=== PATIENT | female | born 1985 | race Two or more races ===

== ENCOUNTER 2022-04-15 10:07 | Observation (INO) | payer MEDICAID ==
[~2022-04-15 10:07] MED LIST: PREN-96 PO
== END 2022-04-15 12:45 | disposition home or self-care (01) ==
LOC: LDRP 10:07
PROVIDERS: ADMIT Obstetrics & Gynecology; ATTEND Obstetrics & Gynecology
DX: O62.9 Abnormality of forces of labor, unspecified (principal); O60.03 Preterm labor without delivery, third trimester; O26.893 Other specified pregnancy related conditions, third trimester; H53.8 Other visual disturbances; Z3A.36 36 weeks gestation of pregnancy; Z98.891 History of uterine scar from previous surgery
CPT/HCPCS: 59025; 81002; 94760; G0378

== ENCOUNTER 2022-04-17 07:47 | Inpatient (IN) | payer MEDICAID ==
[~2022-04-17] VITALS: Ht 152.4 cm; Wt 66.2 kg
[2022-04-27] MEDS ORDERED: TERBUTALINE SULFATE 1 MG/ML 1ML VIAL SC ONE ×3 (11:28→13:45)
[2022-04-27] MEDS ORDERED: LACTATED RINGER'S 1,000 ML IV ONE (11:30)
[2022-04-27] MEDS ORDERED: LACTATED RINGER'S 1,000 ML IV SCH (11:30)
[2022-04-27 12:18] LABS: Basophils # (auto) 0 10 ^3/uL (0-0.2); Basophils % (auto) 0.2 % (0.0-2.0); Eosinophils # (auto) 0 10 ^3/uL (0-0.8); Eosinophils % (auto) 0.3 % (0.0-7.0); Hematocrit 37.4 % (36.0-46.0); Hemoglobin 12.3 g/dL (12.2-16.2); Lymphocytes # (auto) 2.5 10 ^3/uL (0.4-5.4); Lymphocytes % (auto) 27.2 % (10.0-50.0); Mean Corpuscular Hemoglobin 30.6 pg (28.0-32.0); Mean Corpuscular Hgb Conc. 32.9 g/dL (32.0-36.0); Mean Corpuscular Volume 93.1 fL (80.0-100.0); Monocytes # (auto) 0.5 10 ^3/uL (0-1.3); Monocytes % (auto) 5.4 % (0.0-12.0); Neutrophils # (auto) 6.2 10 ^3/uL (1.6-8.6); Neutrophils % (auto) 66.9 % (37.0-80.0); Nucleated Red Blood Cells % 0.1 %; Red Blood Cells 4.02 10^6/uL (4.0-5.20); Red Cell Distribution Width 13.3 % (11.8-14.3); White Blood Cell 9.3 10^3/uL (4.4-10.8)
[2022-04-27 12:35] LABS: Albumin 2.9 g/dL (3.4-5.0); Calcium 8.7 mg/dL (8.5-10.1); Potassium 3.8 mmol/L (3.5-5.1)
[2022-04-27 12:37] LABS: Bilirubin, Total 0.3 mg/dL (0.2-1.0); Total Protein 6.6 g/dL (6.4-8.2)
[2022-04-28 06:06] LABS: RPR Non Reactive (Non Reactive)
[2022-04-28] MEDS ORDERED: NIF10C PO (07:31)
== END 2022-04-27 15:09 | disposition home or self-care (01) | DRG 566 ==
LOC: LDRP 04-27 10:34 → OBSVTOIN 04-27 11:26
PROVIDERS: ADMIT Obstetrics & Gynecology; ATTEND Obstetrics & Gynecology
DX: O34.211 Maternal care for low transverse scar from previous cesarean delivery (principal); Z20.822 Contact with and (suspected) exposure to COVID-19; Z3A.38 38 weeks gestation of pregnancy
CPT/HCPCS: 36415; 59025; 80053; 81002; 85025; 86592; 86850; 86900; 86901; 94760; 96365; 96372; G0378

== ENCOUNTER 2022-04-28 06:06 | Observation (INO) | payer MEDICAID ==
[2022-04-28] MEDS ORDERED: NIF10C PO (07:31)
== END 2022-04-28 07:45 | disposition home or self-care (01) ==
LOC: LDRP 06:06
PROVIDERS: ADMIT Obstetrics & Gynecology; ATTEND Obstetrics & Gynecology
DX: O26.893 Other specified pregnancy related conditions, third trimester (principal); R10.9 Unspecified abdominal pain; R19.7 Diarrhea, unspecified; Z3A.37 37 weeks gestation of pregnancy
CPT/HCPCS: 59025; 81002; 94760; G0378

== ENCOUNTER 2022-05-01 06:54 | Observation (INO) | payer MEDICAID ==
[~2022-05-01] VITALS: Ht 152.4 cm; Wt 63.5 kg
[~2022-05-01 06:54] MED LIST changes: +NIF10C PO
[2022-05-01] MEDS ORDERED: TERBUTALINE SULFATE 1 MG/ML 1ML VIAL SC SCH (07:45)
== END 2022-05-01 09:22 | disposition still patient (30) ==
LOC: LDRP 06:54 → UNDOADMOB 06:54 → LDRP 07:12 → UNDODISOB 09:22
PROVIDERS: ADMIT Obstetrics & Gynecology; ATTEND Obstetrics & Gynecology
DX: O47.1 False labor at or after 37 completed weeks of gestation (principal); O62.9 Abnormality of forces of labor, unspecified; O21.2 Late vomiting of pregnancy; Z3A.38 38 weeks gestation of pregnancy
CPT/HCPCS: 59025; 81002; 96372; G0378; J3105; 96375

== ENCOUNTER 2022-05-03 05:00 | Inpatient (IN) | payer MEDICAID ==
[~2022-05-03] VITALS: Ht 152.4 cm; Wt 67.1 kg
[2022-05-03] VITALS (15 sets, daily range): BP systolic 99–115; BP diastolic 55–82
[2022-05-03] MEDS ORDERED: ceFAZolin 1GM/50ML 50 ML IV ONE (05:45)
[2022-05-03] MEDS ORDERED: LACTATED RINGER'S 1,000 ML IV ONE (05:45)
[2022-05-03] MEDS ORDERED: SODIUM CHLORIDE LOCK 20 ML ONE (06:11)
[2022-05-03] MEDS ORDERED: MIDAZOLAM HCL 2MG/2ML 2ml VIAL (1mg/ml) ONE (06:11)
[2022-05-03] MEDS ORDERED: ePHEDrine SULFATE 50 MG/ML AMP ONE (06:11)
[2022-05-03] MEDS ORDERED: fentaNYL CITRATE 100 MCG/2 ML VL ONE (06:11)
[2022-05-03] MEDS ORDERED: EPINEPHrine HCL 1 MG/1 ML AMP ONE (06:11)
[2022-05-03] MEDS ORDERED: MORPHINE SULF PF 5 MG/10 ML VIAL ONE (06:11)
[2022-05-03] MEDS ORDERED: ONDANSETRON HCL 4 MG/2 ML VIAL ONE (06:11)
[2022-05-03] MEDS ORDERED: oxyTOCIN 10 UNIT/ML 10ML VIAL ONE (06:12)
[2022-05-03] MEDS ORDERED: SUCCINYLCHOLINE CHLORIDE 20 MG/ML 10ML VIAL IV ONE (06:13)
[2022-05-03] MEDS ORDERED: TETRACAINE 1% INJ 2 ML VIAL IJ ONE (06:13)
[2022-05-03] MEDS ORDERED: DexAMETHasone SOD PHOS 10MG/1ML VIAL INJ ONE (06:14)
[2022-05-03 06:20] LABS: Basophils # (auto) 0 10 ^3/uL (0-0.2); Basophils % (auto) 0.2 % (0.0-2.0); Eosinophils # (auto) 0.1 10 ^3/uL (0-0.8); Eosinophils % (auto) 0.8 % (0.0-7.0); Hematocrit 35.6 % (36.0-46.0); Hemoglobin 11.9 g/dL (12.2-16.2); Lymphocytes # (auto) 1.9 10 ^3/uL (0.4-5.4); Lymphocytes % (auto) 21.5 % (10.0-50.0); Mean Corpuscular Hemoglobin 31.2 pg (28.0-32.0); Mean Corpuscular Hgb Conc. 33.6 g/dL (32.0-36.0); Mean Corpuscular Volume 92.8 fL (80.0-100.0); Monocytes # (auto) 0.5 10 ^3/uL (0-1.3); Monocytes % (auto) 5.9 % (0.0-12.0); Neutrophils # (auto) 6.2 10 ^3/uL (1.6-8.6); Neutrophils % (auto) 71.6 % (37.0-80.0); Red Blood Cells 3.83 10^6/uL (4.0-5.20); Red Cell Distribution Width 13.8 % (11.8-14.3); White Blood Cell 8.6 10^3/uL (4.4-10.8)
[2022-05-03] MEDS: LACTATED RINGER'S 1,000 ML IV SCH ×2 (06:24→22:11)
[2022-05-03 06:33] LABS: INR 0.92 (0.9-1.15); Partial Thromboplastin Time 24.5 sec (24.6-33.4)
[2022-05-03] MEDS ORDERED: IBUP800T27 PO (06:34)
[2022-05-03] MEDS ORDERED: HYDR-4902 PO (06:34)
[2022-05-03] MEDS ORDERED: DOCU-94 PO (06:34)
[2022-05-03 06:39] LABS: Albumin 2.6 g/dL (3.4-5.0); Calcium 8.2 mg/dL (8.5-10.1); Potassium 3.9 mmol/L (3.5-5.1)
[2022-05-03 06:41] LABS: BUN/Creatinine Ratio 20.8
[2022-05-03 06:44] LABS: Bilirubin, Total 0.2 mg/dL (0.2-1.0); Total Protein 6.2 g/dL (6.4-8.2)
[2022-05-03] MEDS ORDERED: ONDANSETRON HCL 4 MG/2 ML VIAL IV PRN ×2 (06:45→09:45)
[2022-05-03] MEDS ORDERED: GUM (CHEWING) 1 GUM CHEW CHEW ONE ×2 (06:45→09:45)
[2022-05-03] MEDS ORDERED: LACT. RINGERS/OXYTOCIN 20UNITS 1,000 ML IV ONE (06:45)
[2022-05-03 06:58] LABS: Urine Bacteria FEW /hpf (None Seen); Urine Blood Negative /uL (Negative); Urine Hyaline Cast FEW /lpf (0 - 2); Urine Specific Gravity 1.021 (1.001-1.035); Urine WBC 3 /hpf (0 - 5)
[2022-05-03 07:05] LABS: Amphetamine Screen, Urine NEGATIVE (NEGATIVE); Barbiturate Scree,Urine NEGATIVE (NEGATIVE); Benzodiazephine Screen, Urine NEGATIVE (NEGATIVE); Cannabinoid Screen, Urine NEGATIVE (NEGATIVE); Cocaine Screen, Urine NEGATIVE (NEGATIVE); Opiate Scree,Urine NEGATIVE (NEGATIVE); Phencyclidine Screen, Urine NEGATIVE (NEGATIVE)
[2022-05-03] MEDS ORDERED: CARBOPROST TROMETHAMINE 250 MCG/1ML VIAL IM ONE ×2 (07:05→07:23)
[2022-05-03] MEDS ORDERED: METHYLERGONOVINE MALEATE 0.2 MG/ML AMP IM ONE (07:17)
[2022-05-03] MEDS ORDERED: METOCLOPRAMIDE HCL 5MG/ml INJ 2ml VIAL ONE (07:37)
[2022-05-03] MEDS ORDERED: MORPHINE SULFATE 4 MG/ML SYR/VIAL IV PRN (08:00)
[2022-05-03] MEDS ORDERED: NALOXONE HCL 0.4 MG/ML VIAL IV PRN (08:00)
[2022-05-03] MEDS ORDERED: HYDROmorphone HCL 2 MG/ML VL/or syr IV PRN ×2 (08:00)
[2022-05-03] MEDS ORDERED: diphenhdrAMINE HCL 50 MG/1 ML VL IV PRN (08:00)
[2022-05-03] MEDS ORDERED: METOCLOPRAMIDE HCL 5MG/ml INJ 2ml VIAL IV PRN (08:00)
[2022-05-03] MEDS ORDERED: ceFAZolin 1GM/50ML 50 ML IV SCH ×2 (09:45→14:00)
[2022-05-03] MEDS ORDERED: ACETAMINOPHEN IV 1000 MG/100ML (10MG/ML) IV PRN (09:45)
[2022-05-03] MEDS: DIPHENOXYLATE W/ATROPINE 2.5 MG TAB PO SCH ×2 (10:48→22:03)
[2022-05-03] MEDS: ceFAZolin 1GM/50ML 50 ML IV SCH ×2 (11:15→19:30)
[2022-05-03] MEDS: ACETAMINOPHEN IV 1000 MG/100ML (10MG/ML) IV PRN (17:05)
[2022-05-03 21:35] LABS: Basophils # (auto) 0 10 ^3/uL (0-0.2); Basophils % (auto) 0.1 % (0.0-2.0); Eosinophils # (auto) 0 10 ^3/uL (0-0.8); Hematocrit 36.2 % (36.0-46.0); Hemoglobin 11.7 g/dL (12.2-16.2); Lymphocytes # (auto) 0.9 10 ^3/uL (0.4-5.4); Lymphocytes % (auto) 5.5 % (10.0-50.0); Mean Corpuscular Hemoglobin 30.1 pg (28.0-32.0); Mean Corpuscular Hgb Conc. 32.2 g/dL (32.0-36.0); Mean Corpuscular Volume 93.4 fL (80.0-100.0); Monocytes # (auto) 0.9 10 ^3/uL (0-1.3); Monocytes % (auto) 5.6 % (0.0-12.0); Neutrophils # (auto) 14.2 10 ^3/uL (1.6-8.6); Neutrophils % (auto) 88.8 % (37.0-80.0); Red Blood Cells 3.88 10^6/uL (4.0-5.20); Red Cell Distribution Width 13.6 % (11.8-14.3)
[2022-05-04] VITALS (11 sets, daily range): BP systolic 94–107; BP diastolic 55–72
[2022-05-04] MEDS: ACETAMINOPHEN IV 1000 MG/100ML (10MG/ML) IV PRN (02:12)
[2022-05-04] MEDS ORDERED: ceFAZolin 1GM/50ML 50 ML IV ONE (03:15)
[2022-05-04 06:20] LABS: Basophils # (auto) 0 10 ^3/uL (0-0.2); Basophils % (auto) 0.1 % (0.0-2.0); Eosinophils # (auto) 0 10 ^3/uL (0-0.8); Eosinophils % (auto) 0.1 % (0.0-7.0); Hematocrit 33.8 % (36.0-46.0); Hemoglobin 11.1 g/dL (12.2-16.2); Lymphocytes # (auto) 1.6 10 ^3/uL (0.4-5.4); Lymphocytes % (auto) 12.3 % (10.0-50.0); Mean Corpuscular Hemoglobin 30.6 pg (28.0-32.0); Mean Corpuscular Hgb Conc. 32.9 g/dL (32.0-36.0); Monocytes # (auto) 0.7 10 ^3/uL (0-1.3); Monocytes % (auto) 5.2 % (0.0-12.0); Neutrophils # (auto) 10.6 10 ^3/uL (1.6-8.6); Neutrophils % (auto) 82.3 % (37.0-80.0); Red Blood Cells 3.63 10^6/uL (4.0-5.20); Red Cell Distribution Width 13.9 % (11.8-14.3); White Blood Cell 12.9 10^3/uL (4.4-10.8)
[2022-05-04] MEDS ORDERED: BISACODYL 10 MG RECT SUPP PR PRN (07:15)
[2022-05-04] MEDS ORDERED: HYDROcodone-ACET 5/325MG TAB PO PRN (07:15)
[2022-05-04] MEDS ORDERED: SIMETHICONE 80 MG CHEWABLE TABLET PO ONE (07:30)
[2022-05-04] MEDS: SIMETHICONE 80 MG CHEWABLE TABLET PO SCH ×4 (07:36→21:31)
[2022-05-04] MEDS: HYDROcodone-ACET 5/325MG TAB PO PRN ×2 (07:40→19:35)
[2022-05-04] MEDS: DOCUSATE CALCIUM 240 MG CAP PO SCH (10:17)
[2022-05-04] MEDS: DOCUSATE SOD 100 MG CAP PO SCH ×2 (10:18→21:31)
[2022-05-04] MEDS: IBUPROFEN 800 MG TAB PO PRN ×2 (10:20→21:30)
[2022-05-05] MEDS: HYDROcodone-ACET 5/325MG TAB PO PRN ×5 (00:21→22:06)
[2022-05-05 03:30] VITALS: BP 92/55
[2022-05-05] MEDS: SIMETHICONE 80 MG CHEWABLE TABLET PO SCH ×3 (05:33→22:06)
[2022-05-05 07:07] VITALS: BP 103/56
[2022-05-05] MEDS: DOCUSATE CALCIUM 240 MG CAP PO SCH (10:09)
[2022-05-05] MEDS: IBUPROFEN 800 MG TAB PO PRN ×2 (10:09→18:18)
[2022-05-05] MEDS: DOCUSATE SOD 100 MG CAP PO SCH ×2 (10:09→22:06)
[2022-05-05 11:00] VITALS: BP 105/55
[2022-05-05 15:00] VITALS: BP 101/59
[2022-05-05 18:30] VITALS: BP 108/73
[2022-05-05 23:30] VITALS: BP 104/75
[2022-05-06 03:30] VITALS: BP 100/64
[2022-05-06] MEDS: SIMETHICONE 80 MG CHEWABLE TABLET PO SCH (05:44)
[2022-05-06] MEDS: IBUPROFEN 800 MG TAB PO PRN (05:44)
[2022-05-06 07:00] VITALS: BP 105/72
[2022-05-06] MEDS: HYDROcodone-ACET 5/325MG TAB PO PRN (07:59)
[2022-05-06 09:06] VITALS: BP 105/72
[2022-05-06 11:00] VITALS: BP 105/66
== END 2022-05-06 11:40 | disposition home or self-care (01) | DRG 540 ==
LOC: LDRP 05:00 → OBSVTOIN 05:30 → LDRP 07:00
PROVIDERS: ADMIT Obstetrics & Gynecology; ATTEND Obstetrics & Gynecology
PROC: 10D00Z1 Extraction of Products of Conception, Low, Open Approach (ICD-10-PCS; principal; 2022-05-03 06:38)
DX: O34.211 Maternal care for low transverse scar from previous cesarean delivery (principal); O60.10X0 Preterm labor with preterm delivery, unspecified trimester, not applicable or unspecified; Z20.822 Contact with and (suspected) exposure to COVID-19; Z37.0 Single live birth; Z3A.36 36 weeks gestation of pregnancy
CPT/HCPCS: 36415; 59025; 80053; 80307; 81001; 81002; 85025; 85610; 85730; 86592; 86850; 86900; 86901; 94760; 94762; 96360; 96361; 96366; G0378; J0131; J0171; J0330; J0690; J1100; J2250; J2405; J2590

== ENCOUNTER 2022-09-06 22:06 | Emergency (ER) | payer MEDICAID ==
[~2022-09-06] VITALS: Ht 152.4 cm; Wt 59.0 kg
[~2022-09-06 22:06] MED LIST changes: +DOCU-94 PO; +HYDR-4902 PO; +IBUP800T27 PO; -NIF10C PO
[2022-09-06] MEDS ORDERED: methylPREDNISolone SOD SUCC 125 MG/2 ML VL IM ONE (22:15)
[2022-09-07] MEDS ORDERED: EPINEPHrine HCL 1 MG/1 ML AMP IM ONE (03:00)
[2022-09-07] MEDS ORDERED: PRED20TA2 PO (04:57)
[2022-09-07] MEDS ORDERED: EPIN0.3I24 IJ (04:57)
[2022-09-07 05:10] VITALS: BP 123/87
[2022-09-07] MEDS ORDERED: HYDR25CA PO (09:39)
[2022-09-07] MEDS ORDERED: METH4PAK PO (09:53)
== END 2022-09-07 05:24 | disposition home or self-care (01) ==
LOC: ER 22:06
DX: L50.0 Allergic urticaria (principal); Z88.6 Allergy status to analgesic agent; Z88.8 Allergy status to other drugs, medicaments and biological substances
CPT/HCPCS: 96372; 99284; J0171; J2930

== ENCOUNTER 2022-09-07 08:41 | Emergency (ER) | payer MEDICAID ==
[~2022-09-07] VITALS: Ht 152.4 cm; Wt 60.1 kg
[~2022-09-07 08:41] MED LIST changes: +EPIN0.3I24 IJ; +PRED20TA2 PO
[2022-09-07 09:20] VITALS: BP 133/61
[2022-09-07] MEDS ORDERED: EPINEPHrine HCL 1 MG/1 ML AMP SC ONE (09:30)
[2022-09-07] MEDS ORDERED: diphenhdrAMINE HCL 50 MG/1 ML VL IM ONE (09:30)
[2022-09-07] MEDS ORDERED: HYDR25CA PO (09:39)
[2022-09-07] MEDS ORDERED: METH4PAK PO (09:53)
== END 2022-09-07 09:57 | disposition home or self-care (01) ==
LOC: ER 08:45
DX: T78.40XA Allergy, unspecified, initial encounter (principal); Z79.899 Other long term (current) drug therapy; Z79.1 Long term (current) use of non-steroidal anti-inflammatories (NSAID); Z91.010 Allergy to peanuts; Z91.018 Allergy to other foods; Y92.89 Other specified places as the place of occurrence of the external cause
CPT/HCPCS: 96372; 99283; J0171